=== PATIENT | male | born 1935 | race Caucasian/White ===

== ENCOUNTER 2020-09-22 18:59 | Inpatient (IN) | payer BC, OTHER ==
[~2020-09-22] VITALS: Ht 198.1 cm; Wt 100.6 kg
[2020-09-22 20:18] LABS: Basophils # (auto) 0 10 ^3/uL (0-0.2); Basophils % (auto) 0.2 % (0.0-2.0); Eosinophils # (auto) 0 10 ^3/uL (0-0.8); Eosinophils % (auto) 0.2 % (0.0-7.0); Hematocrit 45.3 % (41.0-53.0); Hemoglobin 15.2 g/dL (13.5-17.5); Lymphocytes # (auto) 0.7 10 ^3/uL (0.4-5.4); Lymphocytes % (auto) 5.7 % (10.0-50.0); Mean Corpuscular Hemoglobin 31.5 pg (28.0-32.0); Mean Corpuscular Hgb Conc. 33.5 g/dL (32.0-36.0); Monocytes # (auto) 0.9 10 ^3/uL (0-1.3); Monocytes % (auto) 7.4 % (0.0-12.0); Neutrophils # (auto) 10.9 10 ^3/uL (1.6-8.6); Neutrophils % (auto) 86.5 % (37.0-80.0); Red Blood Cells 4.81 10^6/uL (4.5-5.90); Red Cell Distribution Width 15.1 % (11.8-14.3); White Blood Cell 12.6 10^3/uL (4.4-10.8)
[2020-09-22 20:48] LABS: Albumin 3.7 g/dL (3.4-5.0); Amylase 30 U/L (25-115); Anion Gap 4 (5-15); Blood Urea Nitrogen 16 mg/dL (7-18); Carbon Dioxide 28 mmol/L (21-32); Chloride 104 mmol/L (98-107); Glucose 143 mg/dL (74-106); Lipase 65 U/L (73-393); Potassium 3.6 mmol/L (3.5-5.1); Sodium 136 mmol/L (136-145)
[2020-09-22 21:06] LABS: Alanine Aminotransferase 11 U/L (16-61); Alkaline Phosphatase 107 U/L (45-117); Aspartate Aminotransferase 17 U/L (15-37); BUN/Creatinine Ratio 12.6; Bilirubin, Total 2.4 mg/dL (0.2-1.0); GFR African American 69 mL/min; GFR Non-African American 57 mL/min; Total Protein 7.7 g/dL (6.4-8.2)
[2020-09-22 21:14] LABS: Partial Thromboplastin Time 26.4 sec (23.0-31.2)
[2020-09-22] MEDS ORDERED: ONDANSETRON HCL 4 MG/2 ML VIAL IV ONE (21:45)
[2020-09-22] MEDS ORDERED: MORPHINE SULFATE INJECTION 2 MG/ML SYRG IV ONE (21:45)
[2020-09-23] MEDS ORDERED: ACETAMINOPHEN 325 MG TAB PO PRN (01:00)
[2020-09-23] MEDS ORDERED: NITROGLYCERIN 0.4 MG SL TAB SL PRN (01:00)
[2020-09-23] MEDS ORDERED: DOCUSATE SOD 100 MG CAP PO PRN (01:00)
[2020-09-23] MEDS ORDERED: MORPHINE SULFATE 4 MG/ML SYR/VIAL IV PRN (01:00)
[2020-09-23] MEDS ORDERED: HYDROcodone-ACET 5/325MG TAB PO PRN (01:00)
[2020-09-23] MEDS ORDERED: MORPHINE SULFATE INJECTION 2 MG/ML SYRG IV PRN (01:00)
[2020-09-23] MEDS: D5W/SOD CHLO 0.9% 1,000 ML IV SCH ×2 (03:07→14:25)
[2020-09-23] MEDS: METOPROLOL TARTRATE 25 MG TAB PO SCH ×3 (06:30→22:00)
[2020-09-23] MEDS: cefTRIAXone 1GM/50ML D5W 50 ML IV SCH (07:25)
[2020-09-23 08:49] LABS: Basophils # (auto) 0 10 ^3/uL (0-0.2); Basophils % (auto) 0.1 % (0.0-2.0); Eosinophils # (auto) 0 10 ^3/uL (0-0.8); Hematocrit 44.8 % (41.0-53.0); Hemoglobin 15.1 g/dL (13.5-17.5); Lymphocytes # (auto) 0.8 10 ^3/uL (0.4-5.4); Lymphocytes % (auto) 6.7 % (10.0-50.0); Mean Corpuscular Hemoglobin 31.6 pg (28.0-32.0); Mean Corpuscular Hgb Conc. 33.6 g/dL (32.0-36.0); Mean Corpuscular Volume 94.2 fL (80.0-100.0); Monocytes # (auto) 1.2 10 ^3/uL (0-1.3); Monocytes % (auto) 10.2 % (0.0-12.0); Neutrophils # (auto) 9.8 10 ^3/uL (1.6-8.6); Red Blood Cells 4.76 10^6/uL (4.5-5.90); Red Cell Distribution Width 15.4 % (11.8-14.3); White Blood Cell 11.8 10^3/uL (4.4-10.8)
[2020-09-23] MEDS: hydrALAZINE HCL 20 MG/ML VL IV PRN ×2 (09:14→13:15)
[2020-09-23 09:22] LABS: Albumin 3.4 g/dL (3.4-5.0); BUN/Creatinine Ratio 12.6; Bilirubin, Total 2.4 mg/dL (0.2-1.0); Calcium 8.9 mg/dL (8.5-10.1); Total Protein 6.8 g/dL (6.4-8.2)
[2020-09-23] MEDS: ENOXAPARIN SOD 40 MG/0.4 ML SYRINGE SC SCH (09:23)
[2020-09-23] MEDS: FAMOTIDINE (10MG/ML) 2ML VL IV SCH ×2 (09:31→22:30)
[2020-09-23] MEDS: ONDANSETRON HCL 4 MG/2 ML VIAL IV PRN (11:14)
[2020-09-23] MEDS ORDERED: BENZOCAINE (DENTAL) 20 % SPRAY 60ML MT ONE (20:45)
[2020-09-23] MEDS ORDERED: LORazepam 2MG/ML-1ML VIAL IV ONE (21:45)
[2020-09-24] MEDS: D5W/SOD CHLO 0.9% 1,000 ML IV SCH ×2 (03:40→17:35)
[2020-09-24 06:47] LABS: Hematocrit 44.5 % (41.0-53.0); Hemoglobin 14.9 g/dL (13.5-17.5); Mean Corpuscular Hemoglobin 31.7 pg (28.0-32.0); Mean Corpuscular Hgb Conc. 33.6 g/dL (32.0-36.0); Mean Corpuscular Volume 94.4 fL (80.0-100.0); Red Blood Cells 4.71 10^6/uL (4.5-5.90); Red Cell Distribution Width 15.1 % (11.8-14.3); White Blood Cell 6.7 10^3/uL (4.4-10.8)
[2020-09-24] MEDS: BUDESONIDE (INHALATION) 180 MCG IH IN SCH (06:53)
[2020-09-24 07:05] LABS: Basophils % (manual) 0 (0.0-2.0); Blast Cells 0; Metamyelocytes % 0; Myelocytes % 0; Promyelocytes % 0; Reactive Lymphocytes 0
[2020-09-24 07:11] LABS: Albumin 3.2 g/dL (3.4-5.0); Calcium 8.2 mg/dL (8.5-10.1); Potassium 3.8 mmol/L (3.5-5.1)
[2020-09-24 07:17] LABS: BUN/Creatinine Ratio 13.5; Bilirubin, Total 2.3 mg/dL (0.2-1.0); Total Protein 6.5 g/dL (6.4-8.2)
[2020-09-24 08:09] LABS: Band Neutrophils % (manual) 2; Eosinophils % (manual) 1 (0-7); Lymphocytes % (manual) 12 (10.0-50.0); Monocytes % (manual) 22 (0-12)
[2020-09-24] MEDS: METOPROLOL TARTRATE 25 MG TAB PO SCH ×2 (10:57→22:00)
[2020-09-24] MEDS: FAMOTIDINE (10MG/ML) 2ML VL IV SCH ×2 (10:57→22:00)
[2020-09-24] MEDS: ENOXAPARIN SOD 40 MG/0.4 ML SYRINGE SC SCH (10:57)
[2020-09-24] MEDS: cefTRIAXone 1GM/50ML D5W 50 ML IV SCH (10:57)
[2020-09-24] MEDS ORDERED: GASTROGRAFIN 120 ML SOL ONE (13:29)
[2020-09-24] MEDS: ONDANSETRON HCL 4 MG/2 ML VIAL IV PRN (15:43)
[2020-09-24] MEDS ORDERED: METOCLOPRAMIDE HCL 5MG/ml INJ 2ml VIAL IV PRN (18:30)
[2020-09-24] MEDS: hydrALAZINE HCL 20 MG/ML VL IV PRN (20:20)
[2020-09-24] MEDS: DOXYCYCLINE 100MG/250ML 250 ML IV SCH (22:00)
[2020-09-25 03:55] VITALS: BP 149/84
[2020-09-25] MEDS ORDERED: ALLO100T PO (06:42)
[2020-09-25] MEDS ORDERED: MULT1TAB95 PO (06:42)
[2020-09-25] MEDS ORDERED: METO25TA93 PO (06:42)
[2020-09-25] MEDS ORDERED: CILO100T PO (06:42)
[2020-09-25] MEDS ORDERED: OMEG100078 PO (06:42)
[2020-09-25] MEDS ORDERED: ATOR20TA50 PO (06:42)
[2020-09-25] MEDS ORDERED: TURM500C PO (06:42)
[2020-09-25] MEDS ORDERED: MEMA1TAB5 PO (06:42)
[2020-09-25] MEDS ORDERED: ASPI325T4 PO (06:42)
[2020-09-25] MEDS ORDERED: ASCO500T11 PO (06:42)
[2020-09-25] MEDS ORDERED: CLOP75TA70 PO (06:42)
[2020-09-25] MEDS: BUDESONIDE (INHALATION) 180 MCG IH IN SCH ×2 (06:53→18:56)
[2020-09-25 08:00] VITALS: BP 163/90
[2020-09-25 08:59] LABS: Basophils # (auto) 0 10 ^3/uL (0-0.2); Basophils % (auto) 0.1 % (0.0-2.0); Eosinophils # (auto) 0 10 ^3/uL (0-0.8); Hematocrit 46.9 % (41.0-53.0); Hemoglobin 15.6 g/dL (13.5-17.5); Lymphocytes # (auto) 0.6 10 ^3/uL (0.4-5.4); Lymphocytes % (auto) 7.5 % (10.0-50.0); Mean Corpuscular Hemoglobin 31.4 pg (28.0-32.0); Mean Corpuscular Hgb Conc. 33.3 g/dL (32.0-36.0); Mean Corpuscular Volume 94.3 fL (80.0-100.0); Monocytes # (auto) 1.2 10 ^3/uL (0-1.3); Monocytes % (auto) 15.2 % (0.0-12.0); Neutrophils # (auto) 6.3 10 ^3/uL (1.6-8.6); Neutrophils % (auto) 77.2 % (37.0-80.0); Red Blood Cells 4.97 10^6/uL (4.5-5.90); Red Cell Distribution Width 15.1 % (11.8-14.3); White Blood Cell 8.2 10^3/uL (4.4-10.8)
[2020-09-25] MEDS: cefTRIAXone 1GM/50ML D5W 50 ML IV SCH (09:18)
[2020-09-25 09:21] LABS: Magnesium 2.7 mg/dL (1.6-2.6); Potassium 3.7 mmol/L (3.5-5.1)
[2020-09-25 09:31] LABS: Albumin 3.4 g/dL (3.4-5.0); BUN/Creatinine Ratio 18.2; CRP High Sensitivity 1.67 mg/dL (< 0.3); Phosphorus 3.2 mg/dL (2.5-4.90); Total Protein 7.3 g/dL (6.4-8.2)
[2020-09-25] MEDS: hydrALAZINE HCL 20 MG/ML VL IV PRN (09:47)
[2020-09-25] MEDS: ZINC SULFATE 220mg CAP or TAB PO SCH (09:47)
[2020-09-25] MEDS: FAMOTIDINE (10MG/ML) 2ML VL IV SCH ×2 (09:47→23:16)
[2020-09-25] MEDS: ENOXAPARIN SOD 40 MG/0.4 ML SYRINGE SC SCH (09:48)
[2020-09-25] MEDS: METOPROLOL TARTRATE 25 MG TAB PO SCH ×2 (09:48→22:00)
[2020-09-25 11:47] LABS: Urine Amorphous Crystal MOD /hpf (None Seen); Urine Bacteria NONE SEEN /hpf (None Seen); Urine Blood Negative /uL (Negative); Urine Mucus MODERATE (None Seen); Urine Specific Gravity 1.038 (1.001-1.035); Urine WBC 3 /hpf (0 - 3)
[2020-09-25] MEDS: DOXYCYCLINE 100MG/250ML 250 ML IV SCH ×2 (12:34→23:17)
[2020-09-25 16:00] VITALS: BP 154/75
[2020-09-25] MEDS: ALBUTEROL SULF HFA 90MCG INH 200DOSE IN PRN (18:56)
[2020-09-25] MEDS ORDERED: BENZOCAINE (DENTAL) 20 % SPRAY 60ML MT ONE (21:15)
[2020-09-25] MEDS ORDERED: SORE THROAT SPRAY 6OZ BOTTLE MT ONE (21:30)
[2020-09-26] VITALS: BP 166/113
[2020-09-26] MEDS: hydrALAZINE HCL 20 MG/ML VL IV PRN ×2 (00:19→22:40)
[2020-09-26 01:24] VITALS: BP 149/66
[2020-09-26] MEDS: ALBUTEROL SULF HFA 90MCG INH 200DOSE IN PRN ×2 (06:53→22:41)
[2020-09-26 08:00] VITALS: BP 135/74
[2020-09-26] MEDS: cefTRIAXone 1GM/50ML D5W 50 ML IV SCH (09:22)
[2020-09-26] MEDS: FAMOTIDINE (10MG/ML) 2ML VL IV SCH ×2 (09:22→22:30)
[2020-09-26] MEDS: METOPROLOL TARTRATE 25 MG TAB PO SCH ×2 (10:00→22:00)
[2020-09-26] MEDS: ZINC SULFATE 220mg CAP or TAB PO SCH (10:00)
[2020-09-26] MEDS: ENOXAPARIN SOD 40 MG/0.4 ML SYRINGE SC SCH (12:18)
[2020-09-26] MEDS: DOXYCYCLINE 100MG/250ML 250 ML IV SCH ×2 (12:18→22:30)
[2020-09-26 16:00] VITALS: BP_SYST 127; BP_SYST 147; BP_DIAS 74; BP_DIAS 81
[2020-09-26] MEDS ORDERED: LORazepam 2MG/ML-1ML VIAL IV ONE (21:00)
[2020-09-26] MEDS: BUDESONIDE (INHALATION) 180 MCG IH IN SCH (22:41)
[2020-09-27] VITALS: BP 133/71
[2020-09-27 05:56] LABS: Basophils # (auto) 0 10 ^3/uL (0-0.2); Basophils % (auto) 0.4 % (0.0-2.0); Eosinophils # (auto) 0 10 ^3/uL (0-0.8); Eosinophils % (auto) 0.1 % (0.0-7.0); Hematocrit 44.3 % (41.0-53.0); Hemoglobin 15.3 g/dL (13.5-17.5); Lymphocytes # (auto) 1.1 10 ^3/uL (0.4-5.4); Lymphocytes % (auto) 13.2 % (10.0-50.0); Mean Corpuscular Hemoglobin 32.3 pg (28.0-32.0); Mean Corpuscular Hgb Conc. 34.5 g/dL (32.0-36.0); Mean Corpuscular Volume 93.7 fL (80.0-100.0); Monocytes # (auto) 1.2 10 ^3/uL (0-1.3); Monocytes % (auto) 14.4 % (0.0-12.0); Neutrophils # (auto) 6.1 10 ^3/uL (1.6-8.6); Neutrophils % (auto) 71.9 % (37.0-80.0); Red Blood Cells 4.72 10^6/uL (4.5-5.90); Red Cell Distribution Width 15.2 % (11.8-14.3); White Blood Cell 8.6 10^3/uL (4.4-10.8)
[2020-09-27 06:07] LABS: Partial Thromboplastin Time 25.9 sec (23.0-31.2)
[2020-09-27 06:22] LABS: Albumin 3.4 g/dL (3.4-5.0); Calcium 8.5 mg/dL (8.5-10.1); Magnesium 2.6 mg/dL (1.6-2.6); Potassium 3.1 mmol/L (3.5-5.1)
[2020-09-27 06:27] LABS: BUN/Creatinine Ratio 29.3; Bilirubin, Total 2.4 mg/dL (0.2-1.0); Phosphorus 3.7 mg/dL (2.5-4.90); Total Protein 7.1 g/dL (6.4-8.2)
[2020-09-27] MEDS: BUDESONIDE (INHALATION) 180 MCG IH IN SCH ×2 (06:30→21:39)
[2020-09-27 07:30] VITALS: BP 166/77
[2020-09-27] MEDS: METOPROLOL TARTRATE 25 MG TAB PO SCH ×2 (08:52→21:12)
[2020-09-27] MEDS: ENOXAPARIN SOD 40 MG/0.4 ML SYRINGE SC SCH (08:52)
[2020-09-27] MEDS: ZINC SULFATE 220mg CAP or TAB PO SCH (08:53)
[2020-09-27] MEDS: FAMOTIDINE (10MG/ML) 2ML VL IV SCH ×2 (08:56→21:12)
[2020-09-27] MEDS: cefTRIAXone 1GM/50ML D5W 50 ML IV SCH (08:56)
[2020-09-27] MEDS: hydrALAZINE HCL 20 MG/ML VL IV PRN (09:17)
[2020-09-27] MEDS: DOXYCYCLINE 100MG/250ML 250 ML IV SCH ×2 (10:10→21:12)
[2020-09-27] MEDS ORDERED: POTASSIUM CHL 20MEQ/100ML 100 ML IV ONE (10:15)
[2020-09-27] MEDS: POTASSIUM CHL 20MEQ/100ML 100 ML IV SCH ×5 (12:00→21:12)
[2020-09-27] MEDS ORDERED: MAGNESIUM SULFATE 1GM/100ML 100 ML IV SCH (14:00)
[2020-09-27] MEDS ORDERED: POLYETHYLENE GLYCOL 17 GM PWDR PO ONE (15:00)
[2020-09-27] MEDS ORDERED: POTASSIUM CHLORIDE 40 MEQ in D5W/LACTATED RINGERS 1,000 ML IV SCH (15:30)
[2020-09-27 15:55] VITALS: BP 139/79
[2020-09-27] MEDS: ALBUTEROL SULF HFA 90MCG INH 200DOSE IN PRN (21:39)
[2020-09-28] VITALS: BP 141/78
[2020-09-28 07:14] LABS: Basophils # (auto) 0 10 ^3/uL (0-0.2); Basophils % (auto) 0.3 % (0.0-2.0); Eosinophils # (auto) 0.1 10 ^3/uL (0-0.8); Eosinophils % (auto) 0.7 % (0.0-7.0); Hematocrit 43.8 % (41.0-53.0); Hemoglobin 14.9 g/dL (13.5-17.5); Lymphocytes % (auto) 12.6 % (10.0-50.0); Mean Corpuscular Hemoglobin 31.8 pg (28.0-32.0); Mean Corpuscular Hgb Conc. 33.9 g/dL (32.0-36.0); Monocytes # (auto) 1.1 10 ^3/uL (0-1.3); Monocytes % (auto) 13.7 % (0.0-12.0); Neutrophils % (auto) 72.7 % (37.0-80.0); Nucleated Red Blood Cells % 0.1 %; Red Blood Cells 4.67 10^6/uL (4.5-5.90); Red Cell Distribution Width 14.9 % (11.8-14.3); White Blood Cell 8.2 10^3/uL (4.4-10.8)
[2020-09-28 07:31] LABS: Potassium 3.5 mmol/L (3.5-5.1)
[2020-09-28 07:39] LABS: Albumin 3.2 g/dL (3.4-5.0); BUN/Creatinine Ratio 30.9; Bilirubin, Total 2.8 mg/dL (0.2-1.0); CRP High Sensitivity 0.5 mg/dL (< 0.3); Calcium 8.4 mg/dL (8.5-10.1); Magnesium 2.6 mg/dL (1.6-2.6); Total Protein 6.7 g/dL (6.4-8.2)
[2020-09-28 07:58] VITALS: BP 161/79
[2020-09-28] MEDS: cefTRIAXone 1GM/50ML D5W 50 ML IV SCH (08:22)
[2020-09-28] MEDS: FAMOTIDINE (10MG/ML) 2ML VL IV SCH ×2 (08:22→22:23)
[2020-09-28] MEDS: ENOXAPARIN SOD 40 MG/0.4 ML SYRINGE SC SCH (08:23)
[2020-09-28] MEDS: METOPROLOL TARTRATE 25 MG TAB PO SCH ×2 (08:23→22:34)
[2020-09-28] MEDS: ZINC SULFATE 220mg CAP or TAB PO SCH (08:23)
[2020-09-28] MEDS: hydrALAZINE HCL 20 MG/ML VL IV PRN (08:25)
[2020-09-28] MEDS: BUDESONIDE (INHALATION) 180 MCG IH IN SCH ×2 (10:31→20:27)
[2020-09-28] MEDS: ALBUTEROL SULF HFA 90MCG INH 200DOSE IN PRN ×2 (10:31→20:27)
[2020-09-28] MEDS: DOXYCYCLINE 100MG/250ML 250 ML IV SCH ×2 (10:34→22:23)
[2020-09-28] MEDS ORDERED: POLYETHYLENE GLYCOL 17 GM PWDR PO ONE (11:00)
[2020-09-28] MEDS ORDERED: POTASSIUM CHL 20 Meq TABLET PO ONE (12:00)
[2020-09-28 16:00] VITALS: BP 148/63
[2020-09-28] MEDS: POLYETHYLENE GLYCOL 17 GM PWDR PO SCH (22:22)
[2020-09-29] VITALS: BP 131/52
[2020-09-29 06:22] LABS: Albumin 2.9 g/dL (3.4-5.0); Calcium 7.9 mg/dL (8.5-10.1); Potassium 3.7 mmol/L (3.5-5.1)
[2020-09-29 06:25] LABS: BUN/Creatinine Ratio 23.7; Bilirubin, Total 2.7 mg/dL (0.2-1.0); Total Protein 6.1 g/dL (6.4-8.2)
[2020-09-29] MEDS: ALBUTEROL SULF HFA 90MCG INH 200DOSE IN PRN (06:26)
[2020-09-29] MEDS: BUDESONIDE (INHALATION) 180 MCG IH IN SCH ×2 (06:26→18:35)
[2020-09-29 08:00] VITALS: BP 128/72
[2020-09-29] MEDS: cefTRIAXone 1GM/50ML D5W 50 ML IV SCH (08:34)
[2020-09-29] MEDS: METOPROLOL TARTRATE 25 MG TAB PO SCH ×2 (10:00→22:00)
[2020-09-29] MEDS: POLYETHYLENE GLYCOL 17 GM PWDR PO SCH ×2 (10:00→22:00)
[2020-09-29] MEDS: DOXYCYCLINE 100MG/250ML 250 ML IV SCH (11:15)
[2020-09-29] MEDS: ZINC SULFATE 220mg CAP or TAB PO SCH (11:15)
[2020-09-29] MEDS: FAMOTIDINE (10MG/ML) 2ML VL IV SCH ×2 (11:15→22:51)
[2020-09-29] MEDS: ENOXAPARIN SOD 40 MG/0.4 ML SYRINGE SC SCH (11:16)
[2020-09-29 16:00] VITALS: BP 141/55
[2020-09-30] VITALS: BP 139/80
[2020-09-30] MEDS: ALBUTEROL SULF HFA 90MCG INH 200DOSE IN PRN ×2 (01:41→13:29)
[2020-09-30 08:00] VITALS: BP 144/80
[2020-09-30 08:57] LABS: Albumin 2.8 g/dL (3.4-5.0); BUN/Creatinine Ratio 23.2; Potassium 3.6 mmol/L (3.5-5.1)
[2020-09-30 09:00] LABS: Bilirubin, Total 2.4 mg/dL (0.2-1.0); Total Protein 5.8 g/dL (6.4-8.2)
[2020-09-30] MEDS: BUDESONIDE (INHALATION) 180 MCG IH IN SCH (10:00)
[2020-09-30] MEDS: POLYETHYLENE GLYCOL 17 GM PWDR PO SCH (10:00)
[2020-09-30] MEDS: METOPROLOL TARTRATE 25 MG TAB PO SCH (10:00)
[2020-09-30] MEDS: FAMOTIDINE (10MG/ML) 2ML VL IV SCH (10:17)
[2020-09-30] MEDS: ZINC SULFATE 220mg CAP or TAB PO SCH (10:17)
[2020-09-30] MEDS: cefTRIAXone 1GM/50ML D5W 50 ML IV SCH (10:17)
[2020-09-30] MEDS: ENOXAPARIN SOD 40 MG/0.4 ML SYRINGE SC SCH (10:18)
[2020-09-30 15:07] VITALS: BP 139/80
== END 2020-09-30 16:00 | disposition home or self-care (01) | DRG 388 ==
LOC: ER 19:01 → OVERFLOW 19:02 → EAST 09-25 03:55 → TELE-EAST 09-25 06:07
PROVIDERS: ADMIT Nurse Practitioner Family; ATTEND Internal Medicine
PROC: 0D9670Z Drainage of Stomach with Drainage Device, Via Natural or Artificial Opening (ICD-10-PCS; principal; 2020-09-27)
DX: K56.609 Unspecified intestinal obstruction, unspecified as to partial versus complete obstruction (principal); U07.1 COVID-19; J12.82 Pneumonia due to coronavirus disease 2019; R65.10 Systemic inflammatory response syndrome (SIRS) of non-infectious origin without acute organ dysfunction; K46.9 Unspecified abdominal hernia without obstruction or gangrene; R73.9 Hyperglycemia, unspecified; I10 Essential (primary) hypertension; E78.5 Hyperlipidemia, unspecified; F03.90 Unspecified dementia, unspecified severity, without behavioral disturbance, psychotic disturbance, mood disturbance, and anxiety; M10.9 Gout, unspecified; Z82.3 Family history of stroke; Z79.899 Other long term (current) drug therapy; Z79.82 Long term (current) use of aspirin; Z79.01 Long term (current) use of anticoagulants; Z90.49 Acquired absence of other specified parts of digestive tract
CPT/HCPCS: 36415; 71045; 74018; 74176; 74250; 80053; 81001; 82150; 82728; 83036; 83605; 83615; 83690; 83735; 83880; 84100; 84484; 85007; 85025; 85027; 85610; 85730; 86141; 86850; 86900; 86901; 87426; 93005; 93306; 94640; G0378; J0696; J2405; J3480; J3490; J7042

== ENCOUNTER 2022-03-18 17:45 | Inpatient (IN) | payer BC ==
[~2022-03-18] VITALS: Ht 190.5 cm; Wt 103.8 kg
[~2022-03-18 17:45] MED LIST: ALLO100T PO; ASCO500T11 PO; ASPI325T4 PO; ATOR20TA50 PO; CILO100T PO; CLOP75TA70 PO; MEMA1TAB5 PO; METO25TA93 PO; MULT1TAB95 PO; OMEG100078 PO; TURM500C PO
[2022-03-18 19:19] LABS: Basophils # (auto) 0 10 ^3/uL (0-0.2); Basophils % (auto) 0.6 % (0.0-2.0); Eosinophils # (auto) 0.1 10 ^3/uL (0-0.8); Eosinophils % (auto) 1.1 % (0.0-7.0); Hematocrit 44.2 % (41.0-53.0); Hemoglobin 14.2 g/dL (13.5-17.5); Lymphocytes # (auto) 1.2 10 ^3/uL (0.4-5.4); Mean Corpuscular Hemoglobin 30.4 pg (28.0-32.0); Mean Corpuscular Volume 94.9 fL (80.0-100.0); Monocytes # (auto) 0.8 10 ^3/uL (0-1.3); Monocytes % (auto) 10.8 % (0.0-12.0); Neutrophils # (auto) 5.4 10 ^3/uL (1.6-8.6); Neutrophils % (auto) 71.5 % (37.0-80.0); Nucleated Red Blood Cells % 0.1 %; Red Blood Cells 4.66 10^6/uL (4.5-5.90); Red Cell Distribution Width 15.4 % (11.8-14.3); White Blood Cell 7.5 10^3/uL (4.4-10.8)
[2022-03-18] MEDS ORDERED: FUROSEMIDE 40 MG/4 ML VIAL IV ONE (19:30)
[2022-03-18] MEDS ORDERED: AMIODARONE HCL 150 MG in D5W 5% 100 ML IV ONE (19:30)
[2022-03-18 19:47] LABS: Albumin 3.4 g/dL (3.4-5.0); Calcium 8.1 mg/dL (8.5-10.1); Potassium 4.2 mmol/L (3.5-5.1)
[2022-03-18] MEDS ORDERED: AMIODARONE HCL (50 MG/ ML) 3 ML VIAL IV ONE (19:49)
[2022-03-18 19:52] LABS: BUN/Creatinine Ratio 20.5; Bilirubin, Total 1.8 mg/dL (0.2-1.0); Total Protein 6.6 g/dL (6.4-8.2)
[2022-03-18] MEDS: AMIODARONE 450mg/250ml AE 250 ML IV SCH (21:02)
[2022-03-18 23:15] LABS: Urine Bacteria NONE SEEN /hpf (None Seen); Urine Blood Negative /uL (Negative); Urine Hyaline Cast FEW /lpf (0 - 2); Urine Specific Gravity 1.006 (1.001-1.035); Urine WBC <1 /hpf (0 - 3)
[2022-03-19] MEDS ORDERED: methylPREDNISolone SOD SUCC 125 MG/2 ML VL IV ONE (01:45)
[2022-03-19] MEDS: ALBUTEROL SULF 2.5 MG/0.5ML(0.5%) NEB SOLN NEB ONE ×2 (02:05→02:34)
[2022-03-19] MEDS: IPRATROPIUM BROM 0.5 MG/2.5ML INH SOL NEB ONE ×2 (02:05→02:34)
[2022-03-19] MEDS ORDERED: ALBUTEROL SULF 2.5 MG/0.5ML(0.5%) NEB SOLN NEB ONE (06:15)
[2022-03-19] MEDS: AMIODARONE 450mg/250ml AE 250 ML IV SCH (10:25)
[2022-03-19] MEDS ORDERED: MORPHINE SULFATE INJ 2 MG/ml SYRG IV PRN (10:30)
[2022-03-19] MEDS ORDERED: HYDROcodone-ACET 5/325MG TAB PO PRN (10:30)
[2022-03-19 14:01] VITALS: BP 129/78
[2022-03-19 17:00] VITALS: BP 127/75
[2022-03-19 20:00] VITALS: BP 150/105
[2022-03-19 22:00] VITALS: BP 150/105
[2022-03-19] MEDS: FUROSEMIDE 100 MG/10ML VIAL IV SCH (22:01)
[2022-03-19] MEDS: hydrALAZINE HCL 20 MG/ML VL IV PRN (22:40)
[2022-03-19 22:50] VITALS: BP 153/108
[2022-03-19] MEDS: IPRATROPIUM BROM 0.5 MG/2.5ML INH SOL NEB PRN (23:02)
[2022-03-19] MEDS ORDERED: ALBUTEROL SULF 2.5 MG/0.5ML(0.5%) NEB SOLN ONE (23:02)
[2022-03-19] MEDS: ALBUTEROL SULF 2.5 MG/0.5ML(0.5%) NEB SOLN NEB PRN (23:02)
[2022-03-19] MEDS ORDERED: IPRATROPIUM BROM 0.5 MG/2.5ML INH SOL ONE (23:02)
[2022-03-20] VITALS (7 sets, daily range): BP systolic 142–153; BP diastolic 97–105
[2022-03-20] MEDS ORDERED: hydrALAZINE HCL 20 MG/ML VL IV ONE
[2022-03-20] MEDS: ALBUTEROL SULF 2.5 MG/0.5ML(0.5%) NEB SOLN NEB PRN ×2 (04:41→18:38)
[2022-03-20] MEDS: IPRATROPIUM BROM 0.5 MG/2.5ML INH SOL NEB PRN ×2 (04:41→18:39)
[2022-03-20 05:39] LABS: Basophils # (auto) 0 10 ^3/uL (0-0.2); Basophils % (auto) 0.5 % (0.0-2.0); Eosinophils # (auto) 0 10 ^3/uL (0-0.8); Hematocrit 40.2 % (41.0-53.0); Hemoglobin 13.3 g/dL (13.5-17.5); Lymphocytes # (auto) 0.8 10 ^3/uL (0.4-5.4); Lymphocytes % (auto) 7.3 % (10.0-50.0); Monocytes # (auto) 1.1 10 ^3/uL (0-1.3); Monocytes % (auto) 10.6 % (0.0-12.0); Neutrophils # (auto) 8.5 10 ^3/uL (1.6-8.6); Neutrophils % (auto) 81.6 % (37.0-80.0); Nucleated Red Blood Cells % 0.2 %; Red Blood Cells 4.15 10^6/uL (4.5-5.90); Red Cell Distribution Width 15.2 % (11.8-14.3); White Blood Cell 10.4 10^3/uL (4.4-10.8)
[2022-03-20 05:47] LABS: Albumin 3.3 g/dL (3.4-5.0); Potassium 3.9 mmol/L (3.5-5.1)
[2022-03-20 05:51] LABS: Bilirubin, Total 2.2 mg/dL (0.2-1.0); Total Protein 6.4 g/dL (6.4-8.2)
[2022-03-20] MEDS: AMIODARONE 450mg/250ml AE 250 ML IV SCH ×2 (07:30→22:39)
[2022-03-20] MEDS ORDERED: ENOXAPARIN SOD 40 MG/0.4 ML SYRINGE SC SCH (10:00)
[2022-03-20] MEDS: FUROSEMIDE 100 MG/10ML VIAL IV SCH ×2 (11:03→19:17)
[2022-03-20] MEDS ORDERED: ATORVASTATIN 20 MG TAB PO SCH (22:00)
[2022-03-20] MEDS: APIXABAN 2.5 MG TAB PO SCH (22:09)
[2022-03-20] MEDS: MEMANTINE HCL 5 MG TAB PO SCH (22:10)
[2022-03-20] MEDS: hydrALAZINE HCL 20 MG/ML VL IV PRN (22:12)
[2022-03-21 05:13] VITALS: BP 121/81
[2022-03-21 05:29] LABS: Basophils # (auto) 0 10 ^3/uL (0-0.2); Basophils % (auto) 0.3 % (0.0-2.0); Eosinophils # (auto) 0 10 ^3/uL (0-0.8); Eosinophils % (auto) 0.5 % (0.0-7.0); Hematocrit 41.8 % (41.0-53.0); Hemoglobin 14.1 g/dL (13.5-17.5); Lymphocytes # (auto) 0.8 10 ^3/uL (0.4-5.4); Lymphocytes % (auto) 10.7 % (10.0-50.0); Mean Corpuscular Hemoglobin 33.4 pg (28.0-32.0); Mean Corpuscular Hgb Conc. 33.8 g/dL (32.0-36.0); Mean Corpuscular Volume 98.9 fL (80.0-100.0); Monocytes # (auto) 0.9 10 ^3/uL (0-1.3); Monocytes % (auto) 11.5 % (0.0-12.0); Neutrophils # (auto) 5.8 10 ^3/uL (1.6-8.6); Red Blood Cells 4.22 10^6/uL (4.5-5.90); Red Cell Distribution Width 15.3 % (11.8-14.3); White Blood Cell 7.6 10^3/uL (4.4-10.8)
[2022-03-21 05:34] LABS: Albumin 3.4 g/dL (3.4-5.0); BUN/Creatinine Ratio 17.4; Calcium 8.2 mg/dL (8.5-10.1); Potassium 3.3 mmol/L (3.5-5.1)
[2022-03-21 05:41] LABS: Bilirubin, Total 2.4 mg/dL (0.2-1.0); Total Protein 6.4 g/dL (6.4-8.2)
[2022-03-21] MEDS: FUROSEMIDE 100 MG/10ML VIAL IV SCH (05:46)
[2022-03-21] MEDS: ALBUTEROL SULF 2.5 MG/0.5ML(0.5%) NEB SOLN NEB PRN (06:01)
[2022-03-21] MEDS: IPRATROPIUM BROM 0.5 MG/2.5ML INH SOL NEB PRN (06:01)
[2022-03-21 08:00] VITALS: BP 150/83
[2022-03-21] MEDS: MEMANTINE HCL 5 MG TAB PO SCH (09:16)
[2022-03-21] MEDS: APIXABAN 2.5 MG TAB PO SCH (09:18)
[2022-03-21 09:24] VITALS: BP_SYST 150; BP_SYST 152; BP_DIAS 83; BP_DIAS 84
[2022-03-21] MEDS ORDERED: AMIO200T33 PO (09:50)
[2022-03-21] MEDS ORDERED: APIX5TAB PO (09:50)
[2022-03-21] MEDS ORDERED: FURO1TAB31 PO (09:50)
[2022-03-21] MEDS ORDERED: POTA-264 PO (09:56)
[2022-03-21] MEDS ORDERED: ALLOPURINOL 100 MG TAB PO SCH (10:00)
[2022-03-21] MEDS ORDERED: METOPROLOL SUCCINATE XL 50 MG TAB PO SCH (10:00)
[2022-03-21 11:16] VITALS: BP 150/83
== END 2022-03-21 12:44 | disposition home or self-care (01) | DRG 291 ==
LOC: ER 17:45 → TELE 03-19 10:23 → TELE-CENTR 03-19 14:10
PROVIDERS: ADMIT Internal Medicine; ATTEND Family Medicine
DX: I13.0 Hypertensive heart and chronic kidney disease with heart failure and stage 1 through stage 4 chronic kidney disease, or unspecified chronic kidney disease (principal); I50.43 Acute on chronic combined systolic (congestive) and diastolic (congestive) heart failure; J96.01 Acute respiratory failure with hypoxia; N17.9 Acute kidney failure, unspecified; I48.91 Unspecified atrial fibrillation; F03.90 Unspecified dementia, unspecified severity, without behavioral disturbance, psychotic disturbance, mood disturbance, and anxiety; I25.10 Atherosclerotic heart disease of native coronary artery without angina pectoris; M10.9 Gout, unspecified; H91.90 Unspecified hearing loss, unspecified ear; I45.10 Unspecified right bundle-branch block; N18.9 Chronic kidney disease, unspecified; Z20.822 Contact with and (suspected) exposure to COVID-19; Z79.01 Long term (current) use of anticoagulants; Z79.02 Long term (current) use of antithrombotics/antiplatelets; Z79.82 Long term (current) use of aspirin; Z79.899 Other long term (current) drug therapy; Z82.49 Family history of ischemic heart disease and other diseases of the circulatory system; Z86.16 Personal history of COVID-19; Z95.5 Presence of coronary angioplasty implant and graft; Z87.01 Personal history of pneumonia (recurrent)
CPT/HCPCS: 36415; 36600; 71045; 80053; 81001; 82805; 83880; 84484; 85025; 93306; 93970; 94640; 96365; 96375; G0378; J7060

== ENCOUNTER 2022-08-20 12:54 | Emergency (ER) | payer BC ==
[~2022-08-20] VITALS: Ht 195.6 cm; Wt 240.0 kg
[~2022-08-20 12:54] MED LIST changes: +AMIO200T33 PO; +APIX5TAB PO; +FURO1TAB31 PO; +POTA-264 PO
[2022-08-20] MEDS ORDERED: SODIUM CHLORIDE 0.9% 1,000 ML IV ONE ×2 (13:15)
[2022-08-20 13:16] VITALS: BP 134/83
[2022-08-20 13:45] LABS: Basophils # (auto) 0 10 ^3/uL (0-0.2); Basophils % (auto) 0.7 % (0.0-2.0); Eosinophils # (auto) 0 10 ^3/uL (0-0.8); Eosinophils % (auto) 0.5 % (0.0-7.0); Hematocrit 43.9 % (41.0-53.0); Hemoglobin 14.7 g/dL (13.5-17.5); Lymphocytes # (auto) 0.8 10 ^3/uL (0.4-5.4); Lymphocytes % (auto) 10.6 % (10.0-50.0); Mean Corpuscular Hemoglobin 32.5 pg (28.0-32.0); Mean Corpuscular Hgb Conc. 33.6 g/dL (32.0-36.0); Mean Corpuscular Volume 96.9 fL (80.0-100.0); Monocytes # (auto) 0.7 10 ^3/uL (0-1.3); Monocytes % (auto) 9.8 % (0.0-12.0); Neutrophils # (auto) 5.9 10 ^3/uL (1.6-8.6); Neutrophils % (auto) 78.4 % (37.0-80.0); Nucleated Red Blood Cells % 0.2 %; Red Blood Cells 4.53 10^6/uL (4.5-5.90); Red Cell Distribution Width 14.9 % (11.8-14.3); White Blood Cell 7.6 10^3/uL (4.4-10.8)
[2022-08-20 14:03] LABS: Albumin 3.7 g/dL (3.4-5.0); BUN/Creatinine Ratio 13.4; Calcium 8.8 mg/dL (8.5-10.1); Potassium 4.7 mmol/L (3.5-5.1)
[2022-08-20 14:05] LABS: Bilirubin, Total 1.7 mg/dL (0.2-1.0); Total Protein 6.7 g/dL (6.4-8.2)
== END 2022-08-20 18:52 | disposition home or self-care (01) ==
LOC: EDBD 12:54 → ER 13:00
DX: S09.8XXA Other specified injuries of head, initial encounter (principal); R41.82 Altered mental status, unspecified; R55 Syncope and collapse; E78.5 Hyperlipidemia, unspecified; I10 Essential (primary) hypertension; W10.8XXA Fall (on) (from) other stairs and steps, initial encounter; Y93.89 Activity, other specified; Y92.89 Other specified places as the place of occurrence of the external cause; Y99.8 Other external cause status
CPT/HCPCS: 36415; 70450; 71045; 80053; 84484; 85025; 93005